=== PATIENT | female | born 1940 | race Caucasian/White ===

== ENCOUNTER 2016-07-15 06:59 | Inpatient (IN) | payer MEDICARE, BC ==
--- NOTE | 2016-07-04 20:13 | HP ---
HISTORY AND PHYSICAL: DATE OF ADMISSION/SURGERY: 07/15/16 DATE OF OFFICE VISIT: 07/04/16 SURGEON: Nichole Johnson MD PROCEDURE: Left total knee arthroplasty. HISTORY OF PRESENT ILLNESS: Ms. Gordillo is a 75-year-old female with complaints of left knee pain secondary to advanced osteoarthritis. She has failed conservative management and has elected to pro ceed with a left total knee arthroplasty. The surgery is scheduled for 07/15/[address] Johnson. PAST MEDICAL HISTORY: Hypertension and left bundle branch block. PAST SURGICAL HISTORY: Partial hysterectomy, vaginal vault, tubal ligation, appendectomy. CURRENT MEDICATIONS: 1. Metoprolol. 2. Hydrochlorothiazide. 3. Aspirin. ALLERGIES: No known drug allergies. FAMILY HISTORY: Diabetes and colon cancer. SOCIAL HISTORY: She is a 75-year-old female. She lives alone. She does not smoke, use drugs, or a lcohol. REVIEW OF SYSTEMS: A complete 14-point review of systems was reviewed with the patient and all is n egative or noncontributory. PHYSICAL EXAMINATION GENERAL: She is well developed, well nourished, in no acute distress. She is alert and oriented x3 . Pleasant mood and appropriate affect. VITAL SIGNS: She stands 5 feet 2 inches tall, weighs 225 pounds. Her blood pressure is 141/71 and her heart rate is 60. HEENT: Normocephalic, atraumatic. NECK: Supple. No palpable lymph nodes. Trachea is midline. PULMONARY: Lungs are clear to auscultation bilaterally. No wheezes, rhonchi, or rales. CARDIO: Regular rate and rhythm. Strong S1 and S2. No murmurs, gallops, or rubs. No peripheral ed kaden. ABDOMEN: Soft, nontender, nondistended. MUSCULOSKELETAL: Left lower extremity, the skin is intact. She has tenderness over the medial and lateral joint line. Her lower extremity muscle group strengths were intact at 5/5. She has intact sensation. 2+ dorsalis pedis pulses. NEUROLOGICAL: Cranial nerves II through XII are intact. ASSESSMENT AND PLAN: Ms. Gordillo is a 75-year-old female who continues to complain of left knee p ain. She has failed conservative management and has elected to proceed with a left total knee arthr oplasty. Dr. Johnson discussed the risks and benefits of the surgery with her at today's visit and al l of her questions were answered. Colace, Percocet, and Coumadin were sent to her pharmacy for DVT prophylaxis and postoperative pain control. She will follow with Dr. Johnson in 10 to 14 days after t he surgery. JAD NELSON [id number]/[facility] #: [id number]
[~2016-07-15 06:59] MED LIST: Buffered Lidocaine 1% SYR 3ML* 3 ML/SYR SYRINGE INTRADERM ONE; Dexamethasone IV* 4 MG/ML 1 ML (4 MG) IV SLOW PU ONE; Dexamethasone IV* 4 MG/ML 1 ML (4 MG) ONE; Famotidine IV* 10 MG/ML 2 ML (20 mg) IV ONE; Famotidine IV* 10 MG/ML 2 ML (20 mg) ONE; ceFAZolin 2 GM PREMIX (*) 2 GM/50 ML BAG IVPB ONE
[2016-07-15] MEDS ORDERED: HYDROmorphone INJ* 1 MG/ML CARPUJECT SYRINGE ONE ×2 (07:29→08:20)
[2016-07-15] MEDS ORDERED: fentaNYL* 50 MCG/ML 2 ML VIAL (100 MCG VIAL) ONE ×2 (07:30→08:20)
[2016-07-15] MEDS ORDERED: Midazolam* 1 MG/ML 2 ML VIAL (2 MG) ONE (07:30)
[2016-07-15] MEDS ORDERED: Morphine PF AMP (0.5MG/ML)* 5 MG/10 ML AMP ONE (07:30)
[2016-07-15] MEDS ORDERED: Bupivacaine 0.5% SDV PF* 30 ML VIAL ONE (07:32)
[2016-07-15] MEDS ORDERED: Dexmedetomidine* 200 MCG/2 ML 2 ML VIAL ONE (07:32)
[2016-07-15] MEDS ORDERED: PROCHLORPERAZINE INJ 5 MG/ML 2 ML VIAL IV PRN ×2 (07:58→09:44)
[2016-07-15] MEDS ORDERED: Ondansetron INJ* 2 MG/ML VIAL IV PRN ×2 (07:58→10:43)
[2016-07-15] MEDS ORDERED: fentaNYL* 50 MCG/ML 2 ML VIAL (100 MCG VIAL) IV PRN (07:58)
[2016-07-15] MEDS ORDERED: DiMENhydriNATE IV* 50 MG/ML VIAL IV PUSH PRN ×2 (07:58→09:44)
[2016-07-15] MEDS ORDERED: Nalbuphine* 20 MG/ML 1 ML VIAL IV PRN (09:44)
[2016-07-15] MEDS ORDERED: Naloxone* 0.4 MG/ML 1 ML VIAL IV PRN (09:44)
[2016-07-15] MEDS ORDERED: diPHENhydraMINE IV* 50 MG/ML 1 ml VIAL (BENADRYL) IV PRN (09:44)
[2016-07-15] MEDS ORDERED: oxyCODONE/Acetamin 5/325 MG* TAB PO PRN (09:44)
[2016-07-15] MEDS ORDERED: Magnesium Hydroxide LIQ* 30 ML UDC PO PRN (10:43)
[2016-07-15] MEDS ORDERED: diPHENhydraMINE PO* 25 MG PO PRN (10:43)
[2016-07-15] MEDS ORDERED: Ondansetron TAB* 4 MG PO PRN (10:43)
[2016-07-15] MEDS ORDERED: Bisacodyl SUPP* 10 MG SUPP PR PRN (10:43)
[2016-07-15] MEDS ORDERED: Polyethylene Glycol 3350* 17 GM PACKET PO PRN (10:43)
--- NOTE | 2016-07-15 11:25 | RAD ---
HISTORY: Status post left total knee replacement COMPARISONS: May 12, 2016 VIEWS: 2, Frontal and lateral views of the left knee FINDINGS: BONE DENSITY: Normal. BONES: The patient is status post left knee arthroplasty. There is no hardware failure or osteolysis. JOINTS: The patient is status post left knee arthroplasty. ALIGNMENT: There is no dislocation. SOFT TISSUES: There is postsurgical change to the soft tissues. OTHER FINDINGS: None. IMPRESSION: STATUS POST LEFT KNEE ARTHROPLASTY
[2016-07-15] MEDS: Ondansetron INJ* 2 MG/ML VIAL IV PRN ×2 (12:10→18:05)
[2016-07-15] MEDS: Metoprolol Tartrate TAB* 25 MG PO SCH ×2 (14:21→22:16)
[2016-07-15] MEDS: ceFAZolin 1 GM in Dextrose (*) 1 GM/50 ML BAG IVPB SCH (16:04)
[2016-07-15] MEDS ORDERED: Warfarin TAB(*) 6 MG PO ONE (17:00)
[2016-07-15] MEDS: Docusate CAP* 100 MG PO SCH (22:15)
[2016-07-16] MEDS ORDERED: oxyCODONE/Acetamin 5/325 MG* TAB PO PRN (00:15)
[2016-07-16] MEDS ORDERED: Morphine INJ* 4 MG/ML 1 ML CARPUJECT IV PRN (00:15)
[2016-07-16] MEDS ORDERED: oxyCODONE TAB* 5 MG TAB PO PRN (00:15)
--- NOTE | 2016-07-16 01:13 | OP ---
DATE OF OPERATION: 07/15/16 - ROOM #348 DATE OF : 44 SURGEON: Nichole Johnson MD INFORMATION CLERK: JAD Perez ANESTHESIOLOGIST: Dr. Rojas. ANESTHESIA: Spinal with adductor canal block. PRE-OP DIAGNOSIS: Severe end-stage degenerative osteoarthritis of the left knee joint. POST-OP DIAGNOSIS: Severe end-stage degenerative osteoarthritis of the left knee joint. OPERATIVE PROCEDURE: Left total knee arthroplasty. HARDWARE USED: This is a cemented [employer] total knee hardware with two packages of Simplex bone cement. For the femur, a size 6 left femoral component posterior stabilized. For the tibia, size 5 left tibial base plate. For the patella, a 35 mm 3-peg poly patella. For the insert, an 11-mm size 5/6 posterior stabilized articular insert. TOURNIQUET TIME: 51 minutes. COMPLICATIONS: None. ESTIMATED BLOOD LOSS: 200 cc. SPECIMENS: Bone and cartilage from the left knee joint sent to pathology. BRIEF HISTORY/INDICATIONS: Ms. Gordillo is a 75-year-old female with years of increasingly severe left knee pain. Radiographs confirmed end-stage osteoarthritis with [id number] contact. She failed conservative treatment with anti- inflammatories, pain medications, intraarticular injections, and physical therapy. She elected to undergo left total knee arthroplasty due to continued pain and decreased quality of life. Informed consent was obtained from the patient. She understood the risks of injury included, but were not limited to bleeding, infection, damage to nearby structures, continued pain, need for further surgery, intraoperative fracture, nerve palsy, hardware failure, loosening, stroke, heart attack, blood clot, and . She wished to proceed. INTRAOPERATIVE FINDINGS: Intraoperatively, the patient was noted to have severe end-stage arthritis of the medial and patellofemoral compartment with exposed subchondral bone and complete wear of cartilage. She had a significant osteopenia noted. DESCRIPTION OF PROCEDURE: Ms. Gordillo was identified in the preanesthesia unit. Her left lower extremity was marked as the correct operative side. Informed consent was signed and placed in the chart. The patient was taken to the operating room and placed under spinal anesthesia with an adductor nerve block. Tourniquet was placed on the left thigh. The left lower extremity was prepped and draped in the usual sterile fashion. Preop time-out was made to correctly identify the patient's side and site. Appropriate preoperative antibiotics were given within 1 hour of incision. Tourniquet was inflated until the tourniquet time for this procedure was 51 minutes. A midline incision of 14 cm was made with a skin blade and carried down to the extensor mechanism. A new 10 blade used to make a standard medial parapatellar arthrotomy. The patella was subluxed laterally. Electrocautery was used to subperiosteally elevate soft tissue off the superomedial tibia to the mid sagittal plane. The knee was flexed up. A drill was used to enter the distal femur. Intramedullary distal femoral cutting guide was pinned into proper position. 9 mm distal femoral bone was carefully removed with an oscillating saw. Next, the external rotation guide was pinned on the distal femur and the distal femur was sized to a size 6. Size 6 multi-cutting jig was pinned on the distal femur. Oscillating saw was used to make the appropriate 4 chamfer cuts. Any remaining bone was carefully removed with a rongeur. Next, the PCL was completely released. The tibia was subluxed anteriorly. Extramedullary tibial cutting guide was pinned on the proximal tibia. Oscillating saw was used to make the proximal tibial cut perpendicular to the mechanical axis of the tibia. The proximal tibial bone was carefully removed. The knee was brought out into full extension and a spacer block had excellent fit. There was good medial and lateral ligamentous balancing. Flexion and extension gaps were well balanced. The knee was flexed up. Lamina accounts collector was placed both medially and laterally. Any remaining meniscus was carefully removed with electrocautery. Curved osteotome was used to remove any osteophytes from the posterior femoral condyles. Tibial tray and drop velia once again confirmed satisfactory proximal tibial cut. A size 6 left femoral trial was impacted on to the distal femur. This had excellent fit. The box for the posterior stabilized implant was prepared using a reamer and box cut osteotome. A size 5 tibial tray trial with an 11-mm insert trial was chosen. This was placed and the knee was taken through a range of motion. The knee had full extension and 130 degrees of flexion with good patellofemoral tracking. The patella was everted. 9 mm of patellar bone and cartilage were carefully removed with an oscillating saw. The patella was sized to a size 35. The 3 peg holes were drilled through the size 35 guide. A 35 trial patella was placed and the knee was taken through a range of motion. The knee had good patellofemoral tracking. All trials were carefully removed. The tibia was subluxed anteriorly and sized to a size 5. Proximal tibia was prepared using a size 5 keel punch. All bony cut surfaces were copiously irrigated with sterile saline and dried. Final implants were cemented into place starting with the tibia followed by the femur, and last the patella. An 11-mm insert trial was placed while the knee was brought out into full extension. The cement was allowed to fully cure and the tourniquet was turned down at 51 minutes. The knee was copiously irrigated with sterile saline. Once the cement was fully cured, the insert trial was removed. Electrocautery was used to obtain meticulous hemostasis. There was very little bleeding noted. Any excess cement was carefully removed. Final insert was chosen was an 11 mm size 5-6 posterior stabilized articular insert. This was locked into position on the tibial tray without difficulty. Stability of the insert was checked and rechecked and noted to be stable. The knee was once again copiously irrigated with sterile saline. The extensor mechanism was closed using interrupted #1 Vicryls. The rest of the incision was closed in a layered fashion using 0 and 2-0 Vicryls. The skin was closed using running 3-0 nylon suture. Sterile Xeroform, 4x4s, and Webril were placed over the incision. Ike wrap and cold pack were placed over this. The patient's anesthesia was reversed without difficulty. She was taken to the PACU in stable condition. Intended weightbearing will be weightbearing as tolerated. Intended DVT prophylaxis will be Coumadin with a Lovenox bridge. [id number]/[facility] #: [id number] [facility] CENTERAndria
[2016-07-16] MEDS: ceFAZolin 1 GM in Dextrose (*) 1 GM/50 ML BAG IVPB SCH ×2 (01:15→08:03)
[2016-07-16 07:10] LABS: Hematocrit 30 % (35-47); Hemoglobin 9.9 g/dl (12.0-16.0)
[2016-07-16] MEDS: oxyCODONE/Acetamin 5/325 MG* TAB PO PRN ×3 (07:47→17:47)
--- NOTE | 2016-07-16 07:55 | PN ---
Progress Note - Progress Note SOAP: Subjective: Pt. is alert, reports pain is minimal. Objective: LLE - distally nvi with +df/pf, full sens lt, 2+ dp pulse. Vital Signs: Temp Pulse Resp BP Pulse Ox 97.6 F 71 16 112/44 100 07/16/16 07:27 07/16/16 07:27 07/16/16 07:47 07/16/16 07:27 07/16/16 07:27 Laboratory Results - last 24 hr 07/16/16 07/16/16 06:58 06:58 Hgb 9.9 L Hct 30 L INR (Anticoag Therapy) 1.06 Assessment: 75 yo F pod 1 s/p LTKA Plan: wbat lle pt/ot 8 mg coumadin tonight with lovenox bridge xrays satisfactory
[2016-07-16 08:01] LABS: BUN/Creatinine Ratio 22.8 (8-20); Calcium 9.1 mg/dL (8.6-10.3); EGFR African American 91.7 (>60); EGFR Non-African American 71.3 (>60); Potassium 4.6 mmol/L (3.5-5.0)
[2016-07-16] MEDS: Hydrochlorothiazide TAB* 25 MG PO SCH (08:44)
[2016-07-16] MEDS: Metoprolol Tartrate TAB* 25 MG PO SCH ×3 (08:45→20:37)
[2016-07-16] MEDS: Docusate CAP* 100 MG PO SCH ×2 (08:45→20:37)
[2016-07-16] MEDS: Enoxaparin(*) 30 MG/0.3 ML SYR SUBCUT SCH (11:17)
[2016-07-16] MEDS ORDERED: Warfarin TAB(*) 4 MG PO ONE (17:00)
[2016-07-17] MEDS: oxyCODONE/Acetamin 5/325 MG* TAB PO PRN ×4 (02:55→22:04)
[2016-07-17 07:07] LABS: Hematocrit 27 % (35-47); Hemoglobin 9.4 g/dl (12.0-16.0)
[2016-07-17] MEDS: Hydrochlorothiazide TAB* 25 MG PO SCH (08:20)
[2016-07-17] MEDS: Metoprolol Tartrate TAB* 25 MG PO SCH ×3 (08:20→20:28)
[2016-07-17] MEDS: Docusate CAP* 100 MG PO SCH ×2 (08:20→20:28)
--- NOTE | 2016-07-17 08:34 | PN ---
Progress Note - Progress Note SOAP: Subjective: []Paient seen at bedside. mild to moderate left knee pain. Denies SOB, CP or dizziness. Hoping to go home tomorrow. Objective: [] Vital Signs Temp 98.4 F 07/17/16 07:26 Pulse 83 07/17/16 07:26 Resp 18 07/17/16 08:19 BP 151/50 07/17/16 07:26 Pulse Ox 95 07/17/16 07:26 Intake & Output 07/16/16 07/17/16 07/17/16 18:59 06:59 18:59 Intake Total 2404 650 180 Output Total 1200 1540 700 Balance 1204 -890 -520 Intake: IV Fluids 1774 ABX - CEFAZOLIN 212 LR 1562 Oral 630 650 180 Output: Urine 950 1540 700 Newell 250 Other: Estimated Void Small Small # Bowel Movements 0 Laboratory Results - last 24 hr 07/17/16 07/17/16 06:49 06:49 Hgb 9.4 L Hct 27 L INR (Anticoag Therapy) 1.43 H Left kinee dressings removed wound with mild ecchymosis around incision line, benign knee dressings re applied calf NT and soft Whit's negative +DF/PF neuro intact Assessment: []s/p Left total knee arthroplasty POD #2 Plan: []PT/OT WBAT Coumadin 4mg today Home tomorrow
[2016-07-17] MEDS: Enoxaparin(*) 30 MG/0.3 ML SYR SUBCUT SCH (11:53)
[2016-07-17] MEDS ORDERED: Warfarin TAB(*) 4 MG PO ONE (17:00)
[2016-07-18] MEDS: oxyCODONE/Acetamin 5/325 MG* TAB PO PRN ×2 (06:51→11:03)
[2016-07-18 07:14] LABS: Hematocrit 28 % (35-47); Hemoglobin 9.4 g/dl (12.0-16.0)
[2016-07-18 08:30] VITALS: BP 136/55
[2016-07-18] MEDS: Metoprolol Tartrate TAB* 25 MG PO SCH (08:32)
[2016-07-18] MEDS: Hydrochlorothiazide TAB* 25 MG PO SCH (08:32)
[2016-07-18] MEDS: Docusate CAP* 100 MG PO SCH (08:33)
[2016-07-18] MEDS: Enoxaparin(*) 30 MG/0.3 ML SYR SUBCUT SCH (10:58)
--- NOTE | 2016-07-18 12:01 | PN ---
Progress Note - Progress Note SOAP: Subjective: [75 y/o F ]s/p Left total knee arthroplasty POD #3. Patient feeling well overalll, working well with PT, no complaints this AM, VSS overnight, pain well controlled with pain medication. ] Objective: [General- Well appearing, NAD Siting up without difficulty MSK- Incision c/d/i, no drainge, minimal erythema over proximal wound, dosri/ plantarflexion intact b/l PT pulses 2+ b/l, neg homans b/l, ] Laboratory Results - last 24 hr 07/18/16 07/18/16 06:25 06:25 Hgb 9.4 L Hct 28 L INR (Anticoag Therapy) 1.79 H Assessment: [75 y/o F ]s/p Left total knee arthroplasty POD #3] Plan: [- D/C to home today - Continue PT - DVT prophylaxis- lovenox today, continue coumadin at home as directed. - Follow up with DR gandara within 10-14 days ] Active Medications Generic Name Dose Route Start Last Admin Trade Name Freq PRN Reason Stop Dose Admin Bisacodyl 10 mg 07/15/16 10:43 Dulcolax Supp* VT DAILY PRN constipation Diphenhydramine HCl 25 mg 07/15/16 10:43 Benadryl Po* PO Q6H PRN itching Docusate Sodium 100 mg 07/15/16 21:00 07/18/16 08:33 Colace Cap* PO 100 mg BID JOSE Administration Enoxaparin Sodium 30 mg 07/16/16 11:00 07/18/16 10:58 Lovenox(*) SUBCUT 30 mg Q24H JOSE Administration Hydrochlorothiazide 12.5 mg 07/16/16 09:00 07/18/16 08:32 Hydrodiuril Tab* PO 12.5 mg DAILY JOSE Administration Lactated Ringer's 1,000 mls @ 100 mls/hr 07/15/16 11:00 07/16/16 08:07 Lactated Ringers 1000 Ml Bag* IV 100 mls/hr PER RATE JOSE Administration Lactulose 30 ml 07/15/16 10:43 07/18/16 08:35 Lactulose* PO 30 ml Q6H PRN Administration constipation Magnesium Hydroxide 30 ml 07/15/16 10:43 07/17/16 08:19 Milk Of Magnesia Liq* PO 30 ml Q6H PRN Administration constipation Metoprolol Tartrate 12.5 mg 07/15/16 14:00 07/18/16 08:32 Lopressor Tab* PO 12.5 mg TID JOSE Administration Morphine Sulfate 4 mg 07/16/16 00:15 Morphine Inj (Syringe)* IV Q2H PRN breakthru pain Ondansetron HCl 4 mg 07/15/16 10:43 Zofran Inj* IV Q6H PRN nausea Ondansetron HCl 4 mg 07/15/16 10:43 Zofran Tab* PO Q6H PRN NAUSEA Oxycodone HCl 10 mg 07/16/16 00:15 Roxycodone Tab* PO Q4H PRN SEVERE PAIN Oxycodone/Acetaminophen 1 tab 07/16/16 00:15 Percocet 5/325 Tab* PO Q3H PRN PAIN - MODERATE Oxycodone/Acetaminophen 2 tab 07/16/16 00:15 07/18/16 11:03 Percocet 5/325 Tab* PO 2 tab Q3H PRN Administration PAIN - MODERATE Pharmacy Profile Note 1 note 07/16/16 17:00 07/17/16 17:01 Coumadin Daily Reminder* FOLLOW UP 1 note 1700 JOES Administration Polyethylene Glycol/Electrolytes 17 gm 07/15/16 10:43 Miralax* PO DAILY PRN Constipation Vital Signs Temp 98.4 F 07/18/16 07:33 Pulse 79 07/18/16 07:33 Resp 18 07/18/16 11:03 BP 136/55 07/18/16 07:33 Pulse Ox 97 07/18/16 07:33 Intake & Output 07/17/16 07/18/16 07/18/16 18:59 06:59 18:59 Intake Total 1240 1120 320 Output Total 1979 1200 Balance -740 -80 320 Intake: Oral 1240 1120 320 Output: Urine 1979 1200 Other: Estimated Void Small Medium # Bowel Movements 1 Estimated Stool Amount Small # Voids 1
--- NOTE | 2016-07-21 01:29 | DS ---
DISCHARGE SUMMARY: DATE OF ADMISSION/SURGERY: 07/15/16 DATE OF DISCHARGE: 07/18/16 CHIEF COMPLAINT: 1. Left knee severe osteoarthritis. 2. Hypertension. 3. History of left bundle-branch block. DISCHARGE DIAGNOSES: 1. Status post left total knee arthroplasty. 2. Hypertension. 3. Left bundle-branch block. PROCEDURE: Left total knee arthroplasty. CONSULTATIONS: 1. Physical Therapy. 2. Occupational Therapy. BRIEF HISTORY: Ms. Gordillo is a very pleasant 75-year-old female with severe end- stage degenerative osteoarthritis of the left knee who failed conservative treatment and elected to go undergo a left total knee arthroplasty by Dr. Nichole Johnson on 07/15/16. HOSPITAL COURSE: Ms. Gordillo was admitted to [facility] on where she underwent a left total knee arthroplasty. Postoperatively, she recovered in the surgical short stay unit. Her Newell was removed on postoperative day #2, and she was voiding on her own without difficulty. She advanced to regular diet and her pain was controlled with p.o. Percocet. Her labs and vital signs remained stable. She was able to weight bear as tolerated on the left lower extremity. She advanced appropriately with physical and occupational therapy. Her DVT prophylaxis was managed with Coumadin and Lovenox until she reached a therapeutic INR. By postoperative day #3, she was orthopedically and medically stable for discharge to go home with home services. PHYSICAL EXAMINATION: General: Well appearing, in no acute distress, sitting up without difficulty. Vital Signs: On the day of discharge, temperature 98.4 , pulse 78, respirations 18, blood pressure , pulse oxygenation 97%. Musculoskeletal: The incision over the left knee is clean, dry, and intact with no drainage, minimal erythema over the proximal portion of the wound. Positive dorsiflexion and plantar flexion, intact bilateral ankles, posterior tibial pulses 2+ bilaterally. Negative Homans sign bilaterally. Sensation intact to gross touch bilateral lower extremities. DIAGNOSTIC STUDIES/LAB DATA: On the date of discharge, H and H of 9.4 and 28 and an INR of 1.79. Radiographs: Postoperative radiographs of the knee showed a satisfactory left total knee arthroplasty. DISCHARGE MEDICATIONS: 1. Colace 100 mg p.o. b.i.d. 2. Hydrochlorothiazide 12.5 mg p.o. daily. 3. Metoprolol 12.5 mg p.o. t.i.d. 4. Coumadin 2 mg p.o. q. 5 p.m. 5. Percocet 1 to 2 tablets every 4 hours as needed for pain. CONDITIONS ON DISCHARGE: Stable. DISCHARGE INSTRUCTIONS: Ms. Gordillo is a very pleasant 75-year-old female, postoperative day #3, status post left total knee arthroplasty which was uncomplicated. She is orthopedically and medically stable for discharge to go home with home services. Her labs and vital signs remained stable. She will restart her home medications. She will take 4 mg of Coumadin on 07/18/16, 2 mg on 07/19/16, 4 mg on 07/20/16 and we will have a repeat INR check on 07/21/16. She will have INR checks every Thursday and with visiting home nurse services. She will remain weightbearing as tolerated on the left lower extremity. She will have home physical therapy at least twice a week and will take Percocet for pain control. She will take Colace up to 3 times a day for constipation. She will follow up with Dr. Johnson in approximately 10 to 14 days for incision check and suture removal. She is instructed to go immediately to the ER should she develop chest pain or shortness of breath. Should she develop fever, increasing pain or redness, she is to call the office immediately. JAD TRAMMELL [id number]/[facility] #: [id number] [place]
== END 2016-07-18 12:30 | disposition home health service (06) | DRG 470 ==
LOC: AA 06:59 → SSU 11:42
PROVIDERS: ADMIT Orthopaedic Surgery Adult Reconstructive Orthopaedic Surgery; ATTEND Orthopaedic Surgery Adult Reconstructive Orthopaedic Surgery
PROC: 0SRD0J9 Replacement of Left Knee Joint with Synthetic Substitute, Cemented, Open Approach (ICD-10-PCS; principal; 2016-07-15 08:30)
DX: M17.12 Unilateral primary osteoarthritis, left knee (principal); I44.7 Left bundle-branch block, unspecified; I10 Essential (primary) hypertension; Z83.3 Family history of diabetes mellitus; Z80.0 Family history of malignant neoplasm of digestive organs; Z98.51 Tubal ligation status; M85.862 Other specified disorders of bone density and structure, left lower leg; M25.762 Osteophyte, left knee; Z90.711 Acquired absence of uterus with remaining cervical stump
CPT/HCPCS: 36415; 80048; 85014; 85018; 85610; 88305; 88311; 94760; A9270-GY; C1776; J0690; J0780; J1100; J1170; J1650; J2250; J2405; J3010

== ENCOUNTER 2017-04-08 07:13 | Day surgery (SDC) | payer MEDICARE, OTHER ==
[~2017-04-08 07:13] MED LIST changes: +Acetaminophen TAB* 325 MG PO PRN; +Buffered Lidocaine 0.9% SYRIN* 5 ML/SYR SYRINGE INTRADERM ONE; -Buffered Lidocaine 1% SYR 3ML* 3 ML/SYR SYRINGE INTRADERM ONE; -Dexamethasone IV* 4 MG/ML 1 ML (4 MG) IV SLOW PU ONE; -Dexamethasone IV* 4 MG/ML 1 ML (4 MG) ONE; -Famotidine IV* 10 MG/ML 2 ML (20 mg) IV ONE; -Famotidine IV* 10 MG/ML 2 ML (20 mg) ONE; -ceFAZolin 2 GM PREMIX (*) 2 GM/50 ML BAG IVPB ONE
[2017-04-08] MEDS ORDERED: Midazolam* 1 MG/ML 5 ML VIAL (5 MG) ONE (08:42)
[2017-04-08 09:40] VITALS: BP 125/50
[2017-04-08] MEDS ORDERED: Buffered Lidocaine 0.9% SYRIN* 5 ML/SYR SYRINGE ONE (12:54)
[2017-04-08] MEDS ORDERED: Lidocaine 2% EPI 1:200000 MPF* 20 ML VIAL ONE (12:54)
[2017-04-08] MEDS ORDERED: Povidone Iodine 5% OPTH* 30 ML BTL ONE (12:54)
[2017-04-08] MEDS ORDERED: Neomycin/Polymy/Dex OPTH.SUSP* MAXITROL 0.1% 5 ML ONE (12:54)
[2017-04-08] MEDS ORDERED: acetaZOLAMIDE TAB* 250 MG ONE (12:54)
[2017-04-08] MEDS ORDERED: Ketorolac 0.5% OPHTH (NF) 0.5 % 5 ML BTL ONE (12:54)
[2017-04-08] MEDS ORDERED: Cyclopentolate 1% OPTH.SOL* 2 ML BTL ONE (12:54)
[2017-04-08] MEDS ORDERED: Phenylephrine 2.5% OPTH.SOL* 2 ML BTL ONE (12:54)
[2017-04-08] MEDS ORDERED: Proparacaine 0.5% OPHTH.SOL* 15 ML BTL ONE (12:54)
[2017-04-08] MEDS ORDERED: Lidocaine 1% MPF* 2 ML VIAL ONE (12:54)
--- NOTE | 2017-04-09 01:21 | OP ---
DATE OF OPERATION: 04/08/17 [facility] DATE OF : 44 SURGEON: Dario Santa MD PREOPERATIVE DIAGNOSIS: Cataract, left eye. POSTOPERATIVE DIAGNOSIS: Cataract, left eye. OPERATIVE PROCEDURE: Phacoemulsification, left eye, with IOL. DESCRIPTION OF PROCEDURE: The patient was brought to the operating room after being given 1/2% Alcaine with epinephrine drops in the preoperative area. The eye was prepped and draped in the usual sterile fashion. Sterile drape and eyelid speculum were placed. Again, topical 1/2% Alcaine with epinephrine was given. A paracentesis incision was made at the 3 o'clock position with the No.75 blade. Clear cornea incision 2.2 x 2.2-mm was created at the 6 o'clock position starting at the anterior limbus using the 2.2-mm keratome. The anterior chamber was irrigated with 0.4 mL of 1% non-preservative intracameral lidocaine and filled with DisCoVisc. A capsulorrhexis was completed using the cystotome and the Utrata forceps. Hydrodissection was performed with balanced salt solution. The lens nucleus was removed with the Phacoemulsification handpiece without incident. Cortex was removed with the irrigation-aspiration handpiece. The capsular bag was re-inflated using DisCoVisc and an [id number] implant was inserted with the shooter. The irrigation-aspiration handpiece was used to remove all residual DisCoVisc. The eye was refilled with balanced salt solution and the wound checked and found to be watertight. Topical Maxitrol drops were given. [id number]/[facility] #: [id number] [facility]
== END 2017-04-08 09:40 | disposition home or self-care (01) ==
LOC: OREAST 07:13
PROVIDERS: ATTEND Specialist
DX: H25.812 Combined forms of age-related cataract, left eye (principal); H04.123 Dry eye syndrome of bilateral lacrimal glands; I10 Essential (primary) hypertension; R42 Dizziness and giddiness
CPT/HCPCS: A9270-GY; J2250; V2632

== ENCOUNTER 2020-09-18 09:08 | Observation (INO) ==
[~2020-09-18 09:08] MED LIST changes: -Acetaminophen TAB* 325 MG PO PRN; -Buffered Lidocaine 0.9% SYRIN* 5 ML/SYR SYRINGE INTRADERM ONE; +Buffered Lidocaine 1% SYRIN 1 ml INTRADERM ONE; +Dexamethasone IV 4 MG/ML VIAL 1 ml VIAL ONE; +Ketamine HCL 50 mg/ml 10 ml VIAL (500 MG) ONE; +Lactated Ringers 1000 ml BAG 1,000 ML IV SCH; +Lidocaine 1% MPF 5 ML VIAL ONE; +Lidocaine 2% PF 5 ML VIAL ONE; +Ondansetron 4 mg VIAL 2 MG/ML 2 ml VIAL ONE; +Propofol 10 MG/ML 20 ML BTL ONE
[2020-09-18] MEDS ORDERED: ceFAZolin 2 GM in NS PREMIX 2 GM/100 ML BAG IVPB ONE (09:20)
[2020-09-18] MEDS ORDERED: fentaNYL 100 mcg/2 ml 50 MCG/ML VIAL ONE (09:53)
[2020-09-18] MEDS ORDERED: Dexamethasone IV 4 MG/ML VIAL 1 ml VIAL ONE (10:09)
[2020-09-18] MEDS ORDERED: Midazolam 2 mg/2 ml VIAL 1 mg/ml 2 ml VIAL (2 mg) ONE ×2 (10:09→11:41)
[2020-09-18] MEDS ORDERED: Bupivacaine 0.5% SDV PF 30ML VIAL ONE (10:28)
[2020-09-18] MEDS ORDERED: ROPIVACAINE 5 MG/ML 30 ML BTL (0.5%) ONE (10:57)
[2020-09-18] MEDS ORDERED: diPHENhydraMINE IV 50 MG/ML 1 ml VIAL (BENADRYL) IV PRN ×2 (11:49→12:34)
[2020-09-18] MEDS ORDERED: Naloxone 0.4 mg VIAL 0.4 mg/ml 1 ml VIAL IV PRN (11:49)
[2020-09-18] MEDS ORDERED: fentaNYL 100 mcg/2 ml 50 MCG/ML VIAL IV PRN (11:49)
[2020-09-18] MEDS ORDERED: Propofol 10 MG/ML 20 ML BTL ONE (12:31)
[2020-09-18] MEDS ORDERED: Ondansetron 4 mg VIAL 2 MG/ML 2 ml VIAL IV PRN (12:34)
[2020-09-18] MEDS ORDERED: Magnesium Hydroxide LIQ 30 ML UDC PO PRN (12:34)
[2020-09-18] MEDS ORDERED: diPHENhydraMINE 25 mg TAB PO PRN (12:34)
[2020-09-18] MEDS ORDERED: Lactulose 30 ml UDC PO PRN (12:34)
[2020-09-18] MEDS ORDERED: Morphine 2 MG/ML SYRINGE IV PRN (12:34)
[2020-09-18] MEDS ORDERED: Ondansetron ODT 4 mg TAB 4 MG TAB PO PRN (12:34)
[2020-09-18] MEDS: Lactated Ringers 1000 ml BAG 1,000 ML IV SCH (15:15)
[2020-09-18] MEDS: ceFAZolin 1 GM ADVAN 1 GM in NS 0.9% 50 ML 50 ML IVPB SCH (20:35)
[2020-09-18] MEDS: Magnesium Hydroxide LIQ 30 ML UDC PO SCH (20:44)
[2020-09-19] MEDS: Lactated Ringers 1000 ml BAG 1,000 ML IV SCH (02:10)
[2020-09-19] MEDS: ceFAZolin 1 GM ADVAN 1 GM in NS 0.9% 50 ML 50 ML IVPB SCH ×2 (03:36→11:13)
[2020-09-19 04:25] LABS: Hematocrit 28 % (35-47); Hemoglobin 9.6 g/dL (12.0-16.0); Platelet Count 172 10^3/uL (150-450)
[2020-09-19 04:44] LABS: EGFR African American 59.5 (>60); EGFR Non-African American 49.2 (>60); Potassium 4.4 mmol/L (3.5-5.0)
[2020-09-19] MEDS ORDERED: Vitamin THERAPEUTIC TAB PO SCH (09:00)
[2020-09-19] MEDS: Magnesium Hydroxide LIQ 30 ML UDC PO SCH (10:25)
[2020-09-19 11:27] VITALS: BP 141/48
== END 2020-09-19 12:25 | disposition home or self-care (01) ==
LOC: SSU 09:08 → OR 09:08
PROVIDERS: ADMIT Orthopaedic Surgery Adult Reconstructive Orthopaedic Surgery; ATTEND Orthopaedic Surgery Adult Reconstructive Orthopaedic Surgery

== ENCOUNTER 2023-01-21 04:07 | Inpatient (IN) ==
[2023-01-21] MEDS ORDERED: Atropine 0.1 MG/ML 10 ml SYR (1 mg) ONE (04:16)
[2023-01-21] MEDS ORDERED: Lactated Ringers 1000 ml BAG 1,000 ML IV ONE (04:20)
[2023-01-21] MEDS ORDERED: Atropine 0.1 MG/ML 10 ml SYR (1 mg) IV PUSH ONE ×2 (04:20)
[2023-01-21 04:35] LABS: ABS Lymphocytes 1.6 10^3/uL (1.0-4.8); ABS Monocytes 0.5 10^3/uL (0.0-0.9); ABS Nucleated RBC 0.01 10^3/ul; Hematocrit 38.7 % (35-45); Hemoglobin 13.2 g/dL (11.5-14.3); Lymphocyte % 25.5 %; Mean Corpuscular Volume 88.3 fL (80-97); Mean Platelet Volume 9.2 fL (7.5-11.2); Nucleated Red Blood Cells % 0.1 /100 WBC (0.0-0.4); Platelet Count 190 10^3/uL (150-450); Red Blood Count 4.38 10^6/uL (3.63-4.92); Red Cell Distribution Width 13.9 % (12-17); White Blood Count 6.1 10^3/uL (3.8-11.8)
[2023-01-21 04:41] LABS: Albumin 3.7 g/dL (3.2-5.2); Anion Gap 13 mmol/L (2-16); CO2 Carbon Dioxide 16 mmol/L (22-32); Calcium 8.7 mg/dL (8.6-10.3); Chloride 108 mmol/L (101-111); Magnesium 1.6 mg/dL (1.9-2.7); Potassium 3.7 mmol/L (3.5-5.0); Sodium 137 mmol/L (135-145)
[2023-01-21] MEDS ORDERED: Magnesium Sulfate IV 1GM/100ML 1 GM/100 ML BAG IV ONE (04:42)
[2023-01-21 04:47] LABS: ALT 12 U/L (7-52); AST 21 U/L (13-39); Albumin/Globulin Ratio 1.4 (1-3); Alkaline Phosphatase 87 U/L (35-149); Blood Urea Nitrogen 18 mg/dL (6-24); Creatinine, Serum 1.09 mg/dL (0.51-0.95); Globulin 2.6 g/dL (2-4); Glucose 123 mg/dL (70-100); Total Protein 6.3 g/dL (6.4-8.9); eGFR CKD-EPI 51.4 (>60)
[2023-01-21 04:50] LABS: Activated Partial Thrombo Time 33.3 seconds (26.0-38.0); INR 1.02 (0.83-1.13)
[2023-01-21 04:58] LABS: High Sens Troponin Baseline 4 pg/mL (<15)
[2023-01-21] MEDS ORDERED: VERAPAMIL 2.5 MG/ML 2 ML VIAL ** 5 mg/2 ml ONE (05:18)
[2023-01-21] MEDS ORDERED: Midazolam 5 mg/5 ml VIAL 1 mg/ml 5 ml VIAL (5 mg) ONE (05:18)
[2023-01-21] MEDS ORDERED: Lidocaine 1% VIAL 10 MG/ML 30 ML VIAL ONE ×2 (05:18→11:55)
[2023-01-21] MEDS ORDERED: Heparin 1,000 UNIT/ML 10 ml (10,000 UNITS) CATHLAB/DIALYSIS ONE (05:18)
[2023-01-21] MEDS ORDERED: fentaNYL 100 mcg/2 ml 50 MCG/ML VIAL ONE ×3 (05:18→11:28)
[2023-01-21] MEDS ORDERED: Heparin 2 UNITS/ML IVPREMIX 2,000 UNIT/1,000 ML BAG IV ONE (05:19)
[2023-01-21] MEDS ORDERED: Iohexol 350 (CONTRAST) 100 ML PAK IV ONE (05:19)
[2023-01-21] MEDS ORDERED: nitroGLYCERIN DRIP 25,000 MCG/250 ML BTL ONE (05:19)
[2023-01-21 05:24] LABS: TSH Ultra Thyroid Stim Horm 2.32 mcIU/mL (0.34-5.60)
[2023-01-21 05:56] LABS: High Sensitivity Troponin 1 Hr 5 pg/mL (<15)
[2023-01-21] MEDS ORDERED: NS 0.9% 1000 ml BAG 1,000 ML IV ONE (07:00)
[2023-01-21] MEDS ORDERED: Magnesium Sulfate 2 gm BAG 2 GM/50 ML BAG IVPB ONE (07:36)
[2023-01-21] MEDS ORDERED: KCL 20 MEQ/100 ML IVPREMIX 20 MEQ/100 ML BAG IV ONE (07:39)
[2023-01-21] MEDS ORDERED: Lorazepam PYXIS KEY PRN (08:10)
[2023-01-21] MEDS ORDERED: LORazepam 2 mg VIAL 1 ml IV PUSH ONE (08:10)
[2023-01-21] MEDS ORDERED: Haloperidol 5 mg/ml SDV IV/IM 5 MG/ML AMP IV SLOW PU ONE ×2 (10:01→10:36)
[2023-01-21] MEDS ORDERED: Lidocaine 2% PF 5 ML VIAL ONE (10:55)
[2023-01-21] MEDS ORDERED: Midazolam 2 mg/2 ml VIAL 1 mg/ml 2 ml VIAL (2 mg) ONE (10:55)
[2023-01-21] MEDS ORDERED: ceFAZolin 2 GM in NS PREMIX 2 GM/100 ML BAG IVPB ONE (11:06)
[2023-01-21] MEDS ORDERED: ceFAZolin SYR FLUSH 1 GM/10 ML for pocket flush (cardiology) FLUSH ONE (11:06)
[2023-01-21 15:22] LABS: Urine Appearance Clear; Urine Bilirubin Negative (Negative); Urine Blood 2+ (Negative); Urine Color Yellow; Urine Glucose Negative (Negative); Urine Ketones Negative (Negative); Urine Nitrite Negative (Negative); Urine Protein Negative (Negative); Urine Specific Gravity 1.014 (1.002-1.030); Urine Urobilinogen Negative (Negative)
[2023-01-21 15:33] LABS: Urine Bacteria Absent (Absent); Urine Red Blood Cell 3+(>10/hpf) (Absent); Urine Squamous Epithelial Cell Present (Absent); Urine White Blood Cell Trace(0-5/hpf) (Absent)
[2023-01-21 16:11] LABS: Phosphorus 2.5 mg/dL (2.5-5.0)
[2023-01-21] MEDS: ceFAZolin 1 GM ADVAN 1 GM in NS 0.9% 50 ML 50 ML IVPB SCH (19:48)
[2023-01-22] MEDS: ceFAZolin 1 GM ADVAN 1 GM in NS 0.9% 50 ML 50 ML IVPB SCH (05:32)
[2023-01-22 09:40] VITALS: BP 158/72
[2023-01-22] MEDS ORDERED: ceFAZolin 1 GM ADVAN 1 GM in NS 0.9% 50 ML 50 ML IVPB ONE (10:41)
== END 2023-01-22 11:45 | disposition home or self-care (01) | DRG 244 ==
LOC: ED 04:07 → EDHOLD 05:24 → ICU 05:30 → AA 05:41 → ICU 05:44
PROVIDERS: ADMIT Student in an Organized Health Care Education/Training Program; ATTEND Student in an Organized Health Care Education/Training Program